=== PATIENT | female | born 1935 | race Caucasian/White ===

== ENCOUNTER → 2016-11-05 | Outpatient (CLI) | payer MEDICARE, BC ==
[~2016-11-05] MED LIST: ALPR-138 PO; ATOR80TA41; BENI40TA30 PO; GUAI100S6 PO; TOPR100T15 PO
[2016-11-05 13:39] LABS: HEMATOCRIT 46.1 % (35.0-46.0); MEAN CELL VOLUME 86.2 FL (80.0-100.0); MEAN CORPUSCULAR HEMOGLOBIN 27.3 PG (27.0-34.0); MEAN CORPUSCULAR HGB CONC 31.6 % (32.0-36.0); PLATELET COUNT 186 TH/MM3 (150-450); RED BLOOD COUNT 5.35 MIL/MM3 (4.00-5.30); RED CELL DISTRIBUTION WIDTH 14.1 % (11.6-17.2); REVIEW FLAG FINAL; WHITE BLOOD COUNT 6.6 TH/MM3 (4.0-11.0)
[2016-11-05 13:53] LABS: ANION GAP 6 MEQ/L (5-15); BICARBONATE 29.9 MEQ/L (21.0-32.0); BLOOD UREA NITROGEN 13 MG/DL (7-18); CHLORIDE 104 MEQ/L (98-107); GLOMERULAR FILTRATION RATE 96 ML/MIN (>89); GLUCOSE,FASTING 138 MG/DL (74-99); SODIUM (NA) 140 MEQ/L (136-145)
[2016-11-05 13:58] LABS: ALKALINE PHOSPHATASE 117 U/L (45-117); ALT (GPT) 10 U/L (10-53); AST (GOT) 11 U/L (15-37); LDL CHOLESTEROL 83 MG/DL (0-99); LDL CHOLESTEROL DIRECT 85 MG/DL (0-99); TOTAL BILIRUBIN ADULT 0.8 MG/DL (0.2-1.0)
[2016-11-05 17:26] LABS: HEMOGLOBIN A1b 1.8 %; HEMOGLOBIN Ao 83.3 %; HEMOGLOBIN LA1C 2.3 %; HEMOGLOBIN P3 5.7 %
== END ==
LOC: PLAB 11:34
PROVIDERS: ATTEND Family Medicine
DX: I25.10 Atherosclerotic heart disease of native coronary artery without angina pectoris (principal); E11.9 Type 2 diabetes mellitus without complications; E78.2 Mixed hyperlipidemia; I10 Essential (primary) hypertension
CPT/HCPCS: 36415; 80053; 80061; 83036; 83721; 85027

== ENCOUNTER → 2017-02-10 | Outpatient (CLI) | payer MEDICARE, BC ==
[2017-02-10 13:33] LABS: HEMATOCRIT 45.9 % (35.0-46.0); MEAN CELL VOLUME 86.3 FL (80.0-100.0); MEAN CORPUSCULAR HEMOGLOBIN 27.6 PG (27.0-34.0); PLATELET COUNT 191 TH/MM3 (150-450); RED BLOOD COUNT 5.32 MIL/MM3 (4.00-5.30); RED CELL DISTRIBUTION WIDTH 14.8 % (11.6-17.2); REVIEW FLAG FINAL; WHITE BLOOD COUNT 6.2 TH/MM3 (4.0-11.0)
[2017-02-10 14:01] LABS: ANION GAP 7 MEQ/L (5-15); AST (GOT) 15 U/L (15-37); BICARBONATE 28.7 MEQ/L (21.0-32.0); BLOOD UREA NITROGEN 12 MG/DL (7-18); CHLORIDE 104 MEQ/L (98-107); GLOMERULAR FILTRATION RATE 91 ML/MIN (>89); GLUCOSE,FASTING 144 MG/DL (74-99); POTASSIUM 4.1 MEQ/L (3.5-5.1); SODIUM (NA) 140 MEQ/L (136-145)
[2017-02-10 14:02] LABS: ALT (GPT) 12 U/L (10-53)
[2017-02-10 14:04] LABS: ALKALINE PHOSPHATASE 135 U/L (45-117); HDL CHOLESTEROL 63.6 MG/DL (40.0-60.0); LDL CHOLESTEROL 94 MG/DL (0-99); LDL CHOLESTEROL DIRECT 106 MG/DL (0-99); TOTAL BILIRUBIN ADULT 0.9 MG/DL (0.2-1.0)
[2017-02-10 17:53] LABS: HEMOGLOBIN A1b 1.9 %; HEMOGLOBIN Ao 82.7 %; HEMOGLOBIN LA1C 2.3 %; HEMOGLOBIN P3 4.1 %
== END ==
LOC: PLAB 11:16
PROVIDERS: ATTEND Family Medicine
DX: E11.9 Type 2 diabetes mellitus without complications (principal); E78.2 Mixed hyperlipidemia; I10 Essential (primary) hypertension; I25.10 Atherosclerotic heart disease of native coronary artery without angina pectoris
CPT/HCPCS: 36415; 80053; 80061; 83036; 83721; 85027

== ENCOUNTER → 2017-07-09 | Outpatient (CLI) | payer MEDICARE, BC ==
[2017-07-09 14:09] LABS: HEMATOCRIT 44.4 % (35.0-46.0); HEMOGLOBIN 14.6 GM/DL (11.6-15.3); MEAN CELL VOLUME 86.4 FL (80.0-100.0); MEAN CORPUSCULAR HEMOGLOBIN 28.4 PG (27.0-34.0); MEAN CORPUSCULAR HGB CONC 32.8 % (32.0-36.0); MEAN PLATELET VOLUME 8.7 FL (7.0-11.0); PLATELET COUNT 217 TH/MM3 (150-450); RED BLOOD COUNT 5.14 MIL/MM3 (4.00-5.30); RED CELL DISTRIBUTION WIDTH 14.4 % (11.6-17.2)
[2017-07-09 14:22] LABS: ALBUMIN 3.2 GM/DL (3.4-5.0); AST (GOT) 17 U/L (15-37); BICARBONATE 30.1 MEQ/L (21.0-32.0); BLOOD UREA NITROGEN 13 MG/DL (7-18); CALCIUM 9.2 MG/DL (8.5-10.1); CHLORIDE 104 MEQ/L (98-107); CREATININE 0.76 MG/DL (0.50-1.00); GLOMERULAR FILTRATION RATE 73 ML/MIN (>89); GLUCOSE,FASTING 168 MG/DL (74-99); SODIUM (NA) 140 MEQ/L (136-145)
[2017-07-09 14:23] LABS: ALT (GPT) 9 U/L (10-53); CHOLESTEROL 180 MG/DL (120-200); TRIGLYCERIDES 106 MG/DL (42-150)
[2017-07-09 14:25] LABS: ALKALINE PHOSPHATASE 142 U/L (45-117); LDL CHOLESTEROL 97 MG/DL (0-99); LDL CHOLESTEROL DIRECT 100 MG/DL (0-99); TOTAL BILIRUBIN ADULT 0.7 MG/DL (0.2-1.0); TOTAL PROTEIN 7.5 GM/DL (6.4-8.2)
[2017-07-09 14:48] LABS: HEMOGLOBIN A1C 7.5 % (4.3-6.0)
== END ==
LOC: PLAB 10:56
PROVIDERS: ATTEND Family Medicine
DX: I25.10 Atherosclerotic heart disease of native coronary artery without angina pectoris (principal); E11.9 Type 2 diabetes mellitus without complications; E78.2 Mixed hyperlipidemia; I10 Essential (primary) hypertension
CPT/HCPCS: 36415; 80053; 80061; 83036; 83721; 85027

== ENCOUNTER → 2017-10-08 | Outpatient (CLI) | payer MEDICARE, BC ==
[2017-10-08 14:04] LABS: HEMATOCRIT 45.8 % (35.0-46.0); HEMOGLOBIN 14.8 GM/DL (11.6-15.3); MEAN CELL VOLUME 86.8 FL (80.0-100.0); MEAN CORPUSCULAR HEMOGLOBIN 28.1 PG (27.0-34.0); MEAN CORPUSCULAR HGB CONC 32.4 % (32.0-36.0); MEAN PLATELET VOLUME 9.3 FL (7.0-11.0); PLATELET COUNT 196 TH/MM3 (150-450); RED BLOOD COUNT 5.28 MIL/MM3 (4.00-5.30); RED CELL DISTRIBUTION WIDTH 14.3 % (11.6-17.2); WHITE BLOOD COUNT 6.1 TH/MM3 (4.0-11.0)
[2017-10-08 14:08] LABS: ALBUMIN 3.3 GM/DL (3.4-5.0); ALT (GPT) 11 U/L (10-53); AST (GOT) 20 U/L (15-37); BICARBONATE 28.3 MEQ/L (21.0-32.0); BLOOD UREA NITROGEN 14 MG/DL (7-18); CHLORIDE 107 MEQ/L (98-107); CHOLESTEROL 165 MG/DL (120-200); CREATININE 0.64 MG/DL (0.50-1.00); GLOMERULAR FILTRATION RATE 89 ML/MIN (>89); GLUCOSE,FASTING 143 MG/DL (74-99); SODIUM (NA) 143 MEQ/L (136-145); TRIGLYCERIDES 85 MG/DL (42-150)
[2017-10-08 14:12] LABS: ALKALINE PHOSPHATASE 118 U/L (45-117); CHOLESTEROL/ HDL RATIO 2.58 RATIO; HDL CHOLESTEROL 63.8 MG/DL (40.0-60.0); LDL CHOLESTEROL 84 MG/DL (0-99); LDL CHOLESTEROL DIRECT 95 MG/DL (0-99); TOTAL BILIRUBIN ADULT 0.7 MG/DL (0.2-1.0); TOTAL PROTEIN 7.3 GM/DL (6.4-8.2)
[2017-10-08 15:03] LABS: HEMOGLOBIN A1C 7.3 % (4.3-6.0)
== END ==
LOC: PLAB 10:27
PROVIDERS: ATTEND Family Medicine
DX: I25.10 Atherosclerotic heart disease of native coronary artery without angina pectoris (principal); E11.9 Type 2 diabetes mellitus without complications; E78.2 Mixed hyperlipidemia; I10 Essential (primary) hypertension
CPT/HCPCS: 36415; 80053; 80061; 83036; 83721; 85027